=== PATIENT | male | born 1975 | race African-American/Black ===

== ENCOUNTER 2021-06-04 16:01 | Emergency (ER) | payer OTHER ==
[~2021-06-04] VITALS: Ht 180.3 cm; Wt 140.6 kg
[2021-06-04] MEDS ORDERED: TENORMIN100 M1 (16:07)
[2021-06-04] MEDS ORDERED: COZAAR25 MG (16:08)
[2021-06-04] MEDS ORDERED: NOVOLIN 70100 UNIT/1 SUBCUTANEO (16:11)
== END 2021-06-04 19:58 | disposition home or self-care (01) ==
LOC: ER 16:01
DX: M94.0 Chondrocostal junction syndrome [Tietze] (principal); I10 Essential (primary) hypertension; E11.9 Type 2 diabetes mellitus without complications

== ENCOUNTER 2024-01-28 07:21 | Outpatient (CLI) | payer OTHER ==
[~2024-01-28 07:21] MED LIST: COZAAR25 MG; NOVOLIN 70100 UNIT/1 SUBCUTANEO; TENORMIN100 M1
[2024-01-28 08:16] LABS: PH,URINE 5.5 (5.0-8.0); URINE APPEARANCE Clear; URINE BILIRRUBIN Negative (NEGATIVE); URINE BLOOD Negative; URINE COLOR Yellow; URINE GLUCOSE Negative (NEGATIVE); URINE LEUKOCYTE Negative; URINE NITRATE Negative; URINE PROTEIN Negative (NEGATIVE); URINE UROBILINOGEN 0.2 E.U./dl
[2024-01-28 08:20] LABS: URINE BACTERIA 50.3 uL (0.0-1933); URINE EPITHELIAL CELLS 8.9 uL (0.0-38.8); URINE WBC 20.6 uL (0.0-23.2)
[2024-01-28 08:31] LABS: HEMATOCRIT 45.1 % (39.0-48.0); HEMOGLOBIN 15.1 g/dL (13-16.00); MEAN CELL VOLUME 86.2 fL (80.0-100.00); MEAN CORPUSCULAR HEMOGLOBIN 28.9 pg (27.00-32.0); MEAN CORPUSCULAR HGB CONC 33.6 g/dl (32.0-36.0); PLATELET COUNT 206 K/uL (150-450); RED BLOOD COUNT 5.23 M/uL (4.00-6.00); RED CELL DISTRIBUTION WIDTH 14.4 % (11.5-14.5)
[2024-01-28 08:42] LABS: URINE RBC 1.2 uL (0.0-20.8)
[2024-01-28 08:52] LABS: ALBUMIN 3.6 gm/dL (3.4-5.0); BILIRUBIN TOTAL 0.46 mg/dL (0.3-1.2); CALCIUM 9.1 mg/dL (8.5-10.1); CHOL HDL RATIO 3.5 (0-5.0); CREATININE SERUM 1.23 mg/dL (0.70-1.30); GFR 62.81; GLOBULINA 3.7 G/DL (2.4-3.5); POTASSIUM 3.52 mEq/L (3.5-5.1); PROSTATIC SPECIFIC ANTIGEN 1.79 NG/ML (0.010-4.00); T4 FREE 1.1 NG/ML (0.76-1.46); TOTAL PROTEIN 7.3 gm/dL (6.4-8.2); TSH 1.66 uIU/mL (0.358-3.74)
== END 2024-01-28 07:22 | disposition home or self-care (01) ==
LOC: LAB 07:21
PROVIDERS: ATTEND Family Medicine
DX: I10 Essential (primary) hypertension (principal); E11.65 Type 2 diabetes mellitus with hyperglycemia; E78.00 Pure hypercholesterolemia, unspecified; Z12.11 Encounter for screening for malignant neoplasm of colon; Z12.5 Encounter for screening for malignant neoplasm of prostate